=== PATIENT | female | born 1955 | race Caucasian/White ===

== ENCOUNTER 2021-05-20 15:40 | Emergency (ER) | payer MEDICARE, SELFPAY ==
[2021-05-20 16:13] VITALS: BP 172/111; PULSE 73; RESP 18; TEMP 36.6; O2SAT 95; BMI 35.7
--- NOTE | 2021-05-20 18:04 | ECG_ITS ---
[facility] Test Date: 2021-05-20 Pat Name: Lucretia Tolliver Department: Room: Gender: Female Director Internal Control: : 1955 Requested By: Crystal Tee Order Number: [id number] Abi MD: Jovany Hammer M.D. Measurements Intervals Muddy Rate: 70 P: 11 NC: 155 QRS: 10 QRSD: 73 T: 32 QT: 381 QTc: 412 Interpretive Statements SINUS RHYTHM MODERATE T-WAVE ABNORMALITY, CONSIDER ANTERIOR ISCHEMIA [-0.1+ mV T-WAVE IN V3/V4] No previous ECG available for comparison Electronically Signed On 05-20-2021 19:28:16 CDT by Jovany Hammer M.D. [id number]
--- NOTE | 2021-05-20 18:29 | XRR_ITS ---
PROCEDURE INFORMATION: Exam: XR Chest Exam date and time: 05/20/2021 6:29 PM Age: 65 years old Clinical indication: Chest wall pain; Additional info: Chest pain, 30 days post covid, not currently having sytmptoms TECHNIQUE: Imaging protocol: XR of the chest. Views: 2 views. COMPARISON: No relevant prior studies available. FINDINGS: Lungs: Unremarkable. No consolidation. Pleural spaces: Unremarkable. No pleural effusion. No pneumothorax. Heart/Mediastinum: Unremarkable. No cardiomegaly. Bones/joints: Sequela of ACDF in the lower cervical spine. XR/XR chest 2V* 01220 IMPRESSION: No acute findings.
--- NOTE | 2021-05-20 18:45 | W.ED.GENADLT ---
HPI - General Adult General: Chief complaint: Headache Stated complaint: Headaches/Mid Back Pain Time Seen by Provider: 05/20/21 17:24 History of Present Illness: HPI narrative: Patient is a 65-year-old female who was diagnosed with Covid 4 weeks ago presenting to the emergency room for evaluation of headache and persistent waist pain. Patient says that since she recovered from Covid, she has had persistent bilateral frontal headache that radiates towards the back. In addition, she has lower rib cage pain that shoots to the back as well. Patient says that her symptoms is normally controlled when she goes to see her nurse practitioner at an urgent care. However her nurse practitioner is currently on vacation and she is not been able to follow-up with this privder. Today, patient presents to the emergency room for evaluation. At the present time, patient denies fever/chills, shortness of breath, chest pain, exertional chest pain, pleuritic chest pain, abdominal complaints or complaints. Patient says that she has occasionally sees an allergy and has noticed mild cough since 4 weeks ago. Onset:4 weeks ago Duration:4 weeks Location:home Severity:mild Review of Systems Narrative: Constitutional: No fever, no chills. HEENT: No vision changes CV: No chest pain, no palpitations PULM: +cough, no dyspnea. + b/l ribs pain GI: No abdominal pain, no N/V/D. : No dysuria MSKEL: No muscle pain SKIN: No new rashes, no lesions. NEURO: +headache, no focal weakness. HEME: No visible bruises PSYCH: Normal mood COUNT INCLUDES THE [facility] ED Female Reproductive History: Date of last menstrual period: 12/13/20 Physical Exam Narrative: EXAM NARRATIVE: Head: Atraumatic Eyes: PERRL, conjunctiva without injection ENT: Mucous membrane moist NECK: Supple, ROM intact LUNGS: LCTAB, no crackles/rhonchi CV: RRR ABDOMEN: Soft, nontender in all quadrants EXTREMITY: Normal ROM SKIN: No rash or erythema NEURO: Mental status? Awake, alert, and oriented to self, year, month, location, and situation.? Following simple axial and appendicular commands.? Has appropriate fund of knowledge, comprehension, and insight.? Able to recall and understands pertinent aspects of medical history and current treatment status.? ? Language? Speech is fluent without word-finding difficulties.? Intact naming, expression, vamper, and repetition.? ? Cranial nerves? 2,3,4,6: PERRL, EOMI with no nystagmus. 5: Intact sensation to light touch, symmetric? 7: Smile symmetrical, no facial droop.? 8: Hearing grossly intact.? 9,10: Normal palate movement.? 11: Normal strength in trapezius bilaterally 12: Tongue protrudes midline.? ? Motor examination? Normal bulk & tone. Strength as follows (R/L): Delts (5/5), Biceps (5/5), Triceps (5/5), Wrist ext (5/5), hip flexors (5/5), plantarflexors (5/5), dorsiflexors (5/5). Sensation? Light Touch: Grossly intact and equal in upper and lower extremities bilaterally? Romberg: Negative.? Distal joint position sense intact ? Coordination? Kvzpvp-sg-vtyv-finger movements intact without dysmetria or past-pointing.? Rapid fingertaps: preserved amplitude without decriment.? No tremor, myoclonus or truncal ataxia.? ? Gait/stance? Steady, normal narrow base gait with appropriate arm swing and turning.? Tandem gait without hesitation or loss of balance. PSYCH: Normal mood and affect Course Vital Signs: Vital signs: Vital Signs Temperature 97.9 F 05/20/21 16:13 Pulse Rate 74 05/20/21 21:26 Respiratory Rate 16 05/20/21 21:26 Blood Pressure 163/94 05/20/21 21:26 Pulse Oximetry 97 05/20/21 21:26 MDM - General Adult MDM Narrative: Medical decision making narrative: Patient is a 65-year-old female who presents to the emergency room for evaluation of bifrontal headache and bilateral rib pain after recovering from Covid. Patient is unable to see her previous provider and presents the emergency room for evaluation. On exam, patient is hemodynamically stable. Lungs appears to be clear. Patient is neuro intact. At this time, does not suspect an acute intracranial process since patient has had symptoms for 4 weeks. I do not suspect cerebral venous thrombosis, subarachnoid bleed, intracranial bleeding of any sort, or other emergent pathology at this time given chronicity of symptoms, no prior history of cancer, injury, aneurysm, or other issues. I have offered patient this CT scan however after discussing everything with patient, patient declined the CT scan. Chest x-ray negative for focal lung findings. I do not suspect the patient has acute pneumonia at this time. Patient received IVF, Reglan, Benadryl and magnesium in the emergency room with significant improvement to symptoms. EKG showing regular sinus rhythm at HT of [70]. Normal axis. T wave inversion in V1 through V3. Normal GA, QRS, QT intervals. Troponin x 1 wnl. Because of the EKG, I have concerns that patient may be developing cardiac ischemia and I cannot rule out the fact that her chest pain may not be related to this. I discussed this finding in detail with patient who tells me that her last cardiac cath report was from 4 years ago. Patient has not underwent any recent stress test. I have informed patient that I have concerns that the chest pain that she has may be related to her heart. I have offered patient admission, however patient declined at this time. Patient informs me that she would rather follow-up with her airport ramp supervisor in [facility]. I have counseled patient regarding risks of leaving including severe morbidity, heart attack, brain , hypoxia, arrythmia, , chest pain, or any other unwanted consequences of leaving against medical advice today. Patient verbalizes understanding of the risks and still wishes to leave AMA. Signed AMA paperwork. Patient advised that patient is welcome to return at any time. I was instructed that patient may come back if symptoms continue to persist and that emergent adverse conditions have not fully been ruled out. Patient is A&Ox3 and has capacity and is of sound mind to make decisions. Disposition: AMA. Given strict return precautions any worsening signs pain, shortness of breath, difficulty walking, focal weakness, or new new or concerning complaints. I have informed patient that to her seeing her airport ramp supervisor, I will still attempt to make a cardiology referral from our Cardiology service. Patient agrees with plan. Lab Data: Labs: Lab Results 05/20/21 05/20/21 05/20/21 Range/Units 20:00 20:00 20:00 WBC 5.2 (4.0-10.0) 10^3/ uL RBC 4.28 (4.1-5.3) 10^6/u L Hgb 12.8 (11.5-15.3) g/dL Hct 40.3 (37.0-47.0) % MCV 94.2 (81-99) fl MCH 29.9 (28.0-34.0) pg MCHC 31.8 (30.0-36.0) g/dL RDW 16.9 H (12.1-15.1) % Plt Count 293 (130-400) 10^3/c mm MPV 10.1 (7.4-10.4) fL Neut % (Auto) 68.5 % Lymph % (Auto) 21.2 % [place] % (Auto) 7.1 % Eos % (Auto) 1.3 % Baso % (Auto) 1.3 % Neut # (Auto) 3.56 (1.8-7.7) 10^3/u L Lymph # (Auto) 1.1 (0.8-4.8) 10^3/u L [place] # (Auto) 0.4 (0.2-0.9) 10^3/u L Eos # (Auto) 0.1 (0.0-0.8) 10^3/u L Baso # (Auto) 0.1 (0.0-0.1) 10^3/u L Nucleated RBC % (a uto) 0 % Nucleated RBCs # 0.0 /100WBC Sodium 135 L (136-145) mmol/L Potassium 4.4 (3.5-5.1) mmol/L Chloride 97 L (98-107) mmol/L Carbon Dioxide 27 (22-29) mmol/L Anion Gap 15.4 (5-19) BUN 7 L (8-23) mg/dL Creatinine 0.6 (0.5-0.9) mg/dL GFR Calculation 100.6 (90-130) mL/min Glucose 117 H (65-115) mg/dL Calculated Osmolal ity 279 L (285-295) mOsm/k g Calcium 9.1 (8.5-10.5) mg/dL Troponin T Gen 5 n g/L 6 (0-10) ng/L NT-Pro-B Natriuret Pep 166 H (0-125) pg/mL Imaging Data^: Other Imaging: Radiologist's impression: [address] [id number] ReportSigned Patient: Lucretia Tolliver #: [id number]: 1955cct#:[id number]/Sex: 65 / FADM Date: 05/20/21Loc: ERRoom/Bed:Attending Dr: Ordering Provider/Ordering MD: Crystal Tee MD Date of Service: 05/20/21 Procedure(s): XR chest 2V* [id number] Accession Number(s): [id number] Report Number: [id number] PROCEDURE INFORMATION: Exam: XR Chest Exam date and time: 05/20/2021 6:29 PM Age: 65 years old Clinical indication: Chest wall pain; Additional info: Chest pain, 30 days post covid, not currently having sytmptoms TECHNIQUE: Imaging protocol: XR of the chest. Views: 2 views. COMPARISON: No relevant prior studies available. FINDINGS: Lungs: Unremarkable. No consolidation. Pleural spaces: Unremarkable. No pleural effusion. No pneumothorax. Heart/Mediastinum: Unremarkable. No cardiomegaly. Bones/joints: Sequela of ACDF in the lower cervical spine. XR/XR chest 2V* [id number] IMPRESSION: No acute findings. Dictated By:Alfredo Hector DOSigned By:Alfredo Hector DOSigned Date/Time:05/20/21D/ 19 Discharge Plan Discharge Patient Disposition: Left Against Medical Advice Clinical Impression: Headache, Chest pain Condition: Stable Prescriptions: No Action primidone 50 mg tablet 150 mg PO BEDTIME RF: 0 Zyrtec 10 mg Tablet 10 mg PO DAILY RF: 0 hydrocodone-acetaminophen 5-325 mg tablet 1 tab PO BID PRN (Reason: Pain) RF: 0 prednisone 5 mg tablet 15 mg PO DAILY RF: 0 atenolol 25 mg tablet 50 mg PO DAILY RF: 0 omeprazole 40 mg capsule,delayed release(DR/EC) 40 mg PO DAILY RF: 0 leflunomide 20 mg tablet 20 mg PO DAILY RF: 0 methotrexate sodium 2.5 mg tablet 25 mg PO Q7D RF: 0 iron 325 mg (65 mg iron) Tablet 325 mg PO DAILY RF: 0 Levoxyl 125 mcg tablet 125 mcg PO DAILY RF: 0 folic acid 1 mg tablet 1 mg PO DAILY RF: 0 duloxetine 60 mg capsule,delayed release(DR/EC) 60 mg PO BID RF: 0 Quercetin 1 tab PO DAILY RF: 0 Vitamin B-12 1 tab PO DAILY RF: 0 Vitamin C 1 tab PO DAILY RF: 0 Vitamin D3 1 tab PO DAILY RF: 0 zinc 1 tab PO DAILY RF: 0 Discharge Orders: Discharge ED (Routine); Ordered 05/20/21 Ordered By: Crystal Tee Discharge Diet: Advance as tolerated Discharge Activity: Resume usual activity Patient Instructions: Chest Pain (ED), Acute Headache (ED) Activity Restrictions/Additional Instructions: Please come back to the emergency room if your symptoms worsen, if you have worsening headache, chest pain, cough, or any new or concerning complaints. Please follow up with your airport ramp supervisor to go over your EKG findings. Coding Level of Care Code ED [employer] Instructor for Fidel Betancourt
[2021-05-20] MEDS: metoclopramide 5 mg/mL SDV 2 mL IVP (19:17)
[2021-05-20] MEDS: diphenhydrAMINE 50 mg/mL SDV 1mL IVP (19:17)
[2021-05-20] MEDS: sodium chloride 0.9% 500 ML IV (19:18)
[2021-05-20] MEDS: magnesium sulfate premix 2 GM/50 ML PIGGYBACK IV (19:18)
[2021-05-20 19:23] VITALS: BP 188/128; PULSE 77; RESP 16; O2SAT 96
[2021-05-20 20:14] LABS: Basophils # 0.1 10^3/uL (0.0-0.1); Basophils % 1.3 %; Eosinophils # 0.1 10^3/uL (0.0-0.8); Eosinophils % 1.3 %; Hematocrit 40.3 % (37.0-47.0); Hemoglobin 12.8 g/dL (11.5-15.3); Lymphocytes # 1.1 10^3/uL (0.8-4.8); Lymphocytes % 21.2 %; Mean Corpuscular HGB Conc 31.8 g/dL (30.0-36.0); Mean Corpuscular Hemoglobin 29.9 pg (28.0-34.0); Mean Corpuscular Volume 94.2 fl (81-99); Mean Platelet Volume 10.1 fL (7.4-10.4); Monocytes # 0.4 10^3/uL (0.2-0.9); Monocytes % 7.1 %; Neutrophils # 3.56 10^3/uL (1.8-7.7); Neutrophils % 68.5 %; Nucleated Red Blood Cells % 0 %; Platelet Count 293 10^3/cmm (130-400); Red Blood Count 4.28 10^6/uL (4.1-5.3); Red Cell Distribution Width 16.9 % (12.1-15.1); White Blood Count 5.2 10^3/uL (4.0-10.0)
[2021-05-20 20:35] LABS: Troponin T (5th) Once 6 ng/L (0-10)
[2021-05-20 20:43] LABS: Anion Gap 15.4 (5-19); Blood Urea Nitrogen 7 mg/dL (8-23); Calcium 9.1 mg/dL (8.5-10.5); Carbon Dioxide 27 mmol/L (22-29); Chloride 97 mmol/L (98-107); Glomerular Filtration Rate 100.6 mL/min (90-130); Glucose 117 mg/dL (65-115); NT Pro B Type Natriuretic Pept 166 pg/mL (0-125); Osmolality Calculated 279 mOsm/kg (285-295); Potassium 4.4 mmol/L (3.5-5.1); Sodium 135 mmol/L (136-145)
[2021-05-20 21:26] VITALS: BP 163/94; PULSE 74; RESP 16; O2SAT 97
== END 2021-05-20 21:28 | disposition left against medical advice (07) ==
PROVIDERS: Emergency Provider Emergency Medicine
DX: R51.9 Headache, unspecified (principal); R07.9 Chest pain, unspecified; Z53.21 Procedure and treatment not carried out due to patient leaving prior to being seen by health care provider
CPT/HCPCS: 71046; 80048; 83880; 84484; 85025; 93005; 96365; 96375; 99284; J1200; J2765; J3475; J7040

== ENCOUNTER → 2024-06-08 09:59 | Outpatient (BNVA) | payer MEDICARE, SELFPAY | PROVIDERS: PCP Nurse Practitioner Family; Visit Provider Nurse Practitioner Family | DX: Z51.81 Encounter for therapeutic drug level monitoring (principal); E03.9 Hypothyroidism, unspecified | CPT/HCPCS: 80048; 80076; 84439; 84443; 85025 ==